=== PATIENT | female | born 1975 | race Caucasian/White ===

== ENCOUNTER → 2020-06-03 09:12 | Outpatient (BNVA) | payer OTHER, SELFPAY | PROVIDERS: PCP Family Medicine; Visit Provider Physician Assistant ==

== ENCOUNTER → 2020-06-08 08:12 | Outpatient (BNVA) | payer OTHER, SELFPAY | PROVIDERS: PCP Family Medicine; Visit Provider Surgery ==

== ENCOUNTER 2020-06-09 13:05 | Outpatient (REF) | payer OTHER, SELFPAY ==
--- NOTE | ~2020-06-09 | XR_ITS ---
EXAMINATION: XR CHEST CLINICAL INFORMATION: Morbid obesity COMPARISON: None TECHNIQUE: 2 views of the chest were obtained. FINDINGS: Normal symmetric lung volumes. No parenchymal consolidation. No pleural effusion. No pneumothorax. Cardiomediastinal silhouette and pulmonary vascularity are within normal limits. No acute osseous abnormalities. XR/XR chest 2V IMPRESSION: Unremarkable examination.
--- NOTE | 2020-06-09 13:31 | ECG_ITS ---
Test Reason : MORBID OBESITY Blood Pressure : / mmHG Vent. Rate : 077 BPM Atrial Rate : 077 BPM P-R Int : 158 ms QRS Dur : 090 ms QT Int : 366 ms P-R-T Axes : 033 015 002 degrees QTc Int : 414 ms Normal sinus rhythm Low voltage QRS Borderline ECG No previous ECGs available Referred By: Guillermo Boyle Electronically Signed By:ALECIA HERRERA MD
[2020-06-09 14:22] LABS: MANUAL DIFF FLAG NO
[2020-06-09 14:28] LABS: Basophils Percent Auto 0.5 % (0-2); Eosinophils Absolute Auto 0.2 X10*3/uL (0.0-0.4); Eosinophils Percent Auto 2.1 % (0-4); Hematocrit 30.7 % (37-47); Hemoglobin 9.3 g/dl (12.0-16.0); Imm Gran Abs Auto 0.03 X10*3/uL (0.00-0.03); Imm Gran Pct Auto 0.4 % (0.0-0.4); Lymphocytes Absolute Auto 2.1 X10*3/uL (1.2-4.9); Lymphocytes Percent Auto 27.8 % (20-40); Mean Corpuscular HGB Conc 30.3 g/dl (31.0-35.0); Mean Corpuscular Hemoglobin 20.4 pg (27.0-33.0); Mean Corpuscular Volume 67.2 fL (80-98); Mean Platelet Volume 10.9 fL (9.4-12.3); Monocytes Absolute Auto 0.4 X10*3/uL (0.1-1.2); Monocytes Percent Auto 5.4 % (2-11); Neutrophils Absolute Auto 4.8 X10*3/uL (2.0-8.3); Neutrophils Percent Auto 63.8 % (45-73); Platelet Count 345 X10*3/uL (160-400); Red Blood Count 4.57 X10*6/uL (4.20-5.50); Red Cell Distribution Width 15.3 % (11.0-16.0); White Blood Count 7.5 X10*3/uL (4.8-10.8)
[2020-06-09 14:49] LABS: Alanine Aminotransferase 17 U/L (0-31); Albumin Level 3.7 g/dL (3.5-5.0); Alkaline Phosphatase 86 U/L (39-117); Anion Gap 13 (12-20); Aspartate Amino Transferase 19 U/L (5-31); Bilirubin Total 0.4 mg/dL (0.0-1.0); Blood Urea Nitrogen 9 mg/dL (9-16); C Reactive Protein 2.55 mg/dL (< or = 0.50); Calcium 8.7 mg/dL (8.4-10.2); Carbon Dioxide 25 mmol/L (22-29); Chloride 104 mmol/L (96-108); Cholesterol 188 mg/dL; Estimated Glomerular Filt Rate > 60; Glucose Random 90 mg/dL (60-115); HDL Cholesterol 61 mg/dL; LDL Cholesterol Calculated 91 mg/dl; Potassium 4.4 mmol/L (3.3-5.1); Sodium 138 mmol/L (135-145); Total Protein 6.8 g/dL (6.5-8.0); Triglycerides 182 mg/dL
[2020-06-09 15:10] LABS: Ferritin 5 ng/mL (10-250); TSH reflex Free T4 0.72 uIU/mL (0.32-4.0); Vitamin D 25-OH Total 22.9 ng/mL (>30)
[2020-06-09 15:25] LABS: Folate 9.2 ng/mL (> or = 4.0); Vitamin B12 206 pg/mL (200-900)
[2020-06-09 15:27] LABS: Estimated Average Glucose 146 mg/dL; Hemoglobin A1c % 6.7 %
[2020-06-10 18:21] LABS: PTHI 47 pg/mL (14-64)
[2020-06-12 17:07] LABS: Zinc 76 mcg/dL (60-130)
[2020-06-13 06:27] LABS: Vitamin B1 9 nmol/L (8-30)
[2020-06-13 12:21] LABS: Vitamin A 62 mcg/dL (38-98)
== END 2020-06-09 13:06 | disposition home or self-care (01) ==
LOC: HO.LAB 13:05
PROVIDERS: Surgery; PCP Family Medicine; Visit Provider Surgery
DX: E66.01 Morbid (severe) obesity due to excess calories (principal); E11.9 Type 2 diabetes mellitus without complications; G47.30 Sleep apnea, unspecified; J45.909 Unspecified asthma, uncomplicated
CPT/HCPCS: 36415; 71046; 80053; 80061; 82306; 82607; 82728; 82746; 83036; 83525; 83970; 84425; 84443; 84590; 84630; 85025; 86140; 93005

== ENCOUNTER → 2020-07-04 08:24 | Outpatient (BNVA) | payer OTHER, SELFPAY | PROVIDERS: PCP Family Medicine; Visit Provider Surgery | DX: E66.01 Morbid (severe) obesity due to excess calories (principal); Z68.41 Body mass index [BMI] 40.0-44.9, adult; Z71.3 Dietary counseling and surveillance | CPT/HCPCS: 97802 ==

== ENCOUNTER 2020-07-14 09:40 | Outpatient (REF) | payer OTHER, SELFPAY ==
--- NOTE | ~2020-07-14 | US_ITS ---
EXAMINATION: US COMPLETE ABDOMEN WITH LIVER ELASTOGRAPHY CLINICAL INFORMATION: Morbid (severe) obesity. COMPARISON: None. TECHNIQUE: Real-time imaging of the abdominal viscera. Noninvasive ultrasound liver fibrosis assessment is performed using Lonnie ElastPQ point quantification shear wave elastography (pSWE) with a C5-2 MHz transducer. Multiple elastography samples are obtained. FINDINGS: PANCREAS: Normal. The visualized pancreatic head and body are normal in appearance. The remainder of the pancreas is obscured from visualization by the overlying bowel gas. ABDOMINAL AORTA: The proximal, middle, and distal aortic segments are normal in caliber. INFERIOR VENA CAVA: Visualized portions are normal. LIVER: The liver demonstrates normal size, contour and increased echogenicity. No focal lesion or intrahepatic biliary duct dilatation. The right lobe measures 17.0 cm in length. The left lobe measures 1.15 cm in length. Portal flow is hepatopedal. Shear wave liver elastography median stiffness is 1.57 m/s (reference: normal median stiffness is 1.3 m/s or less). IQR/median stiffness to assess sampling precision is 0.25 (reference: good quality data set is IQR/median stiffness of 0.15 or less). GALLBLADDER: Normal. The gallbladder is physiologically distended without evidence of stones, sludge, polyps, wall thickening or pericholecystic fluid. COMMON BILE DUCT: Normal in caliber measuring 0.27 cm in diameter. RIGHT KIDNEY: Normal. No hydronephrosis. No renal calculi or focal parenchymal lesions. The kidney measures 10.9 cm in maximum dimension. LEFT KIDNEY: Normal. No hydronephrosis. No renal calculi or focal parenchymal lesions. The kidney measures 10.8 cm in maximum dimension. SPLEEN: Normal. The spleen measures 10.7 cm in maximum dimension. FREE FLUID: None. US/US abdomen comp w elastography IMPRESSION: 1. Hepatic steatosis without focal lesion. Rest of the abdominal ultrasound is unremarkable 2. Liver elastography: Median stiffness 1.57. This is suggestive of cACLD ruled out. REFERENCE: Society of Radiologists in Ultrasound Liver Stiffness Thresholds (2020): LIVER STIFFNESS THRESHOLDS: *Liver Stiffness equal or less than 1.3 m/s: High probability of being normal. *Liver Stiffness less than 1.7 m/s: In the absence of other known clinical signs, rules out compensated advanced chronic liver disease. *Liver Stiffness 1.7-2.1 m/s: Suggestive of compensated advanced chronic liver disease, but need further test for confirmation. *Liver Stiffness over 2.1 m/s: Rules in compensated advanced chronic liver disease. *Liver Stiffness over 2.4 m/s: Suggestive of clinically significant portal hypertension. QUALITY OF DATA SET: *IQR/Median value equal or less than 0.15 implies a quality data set. *IQR/Median value over 0.15 implies a poor quality data set. SIGNIFICANT CHANGE FROM PRIOR EXAM: Significant change if liver stiffness measurement is 10% or greater from prior exam. OTHER CONSIDERATIONS: The stage of liver fibrosis may be overestimated in the setting of acute hepatitis, liver inflammation, elevated liver function tests, hepatic vascular congestion, obstructive cholestasis, non-fasting state, and infiltrative diseases such as amyloidosis and lymphoma. In some patients with NAFLD, the liver stiffness thresholds for compensated advanced chronic liver disease may be lower. In causes other than viral hepatitis and NAFLD, liver stiffness thresholds are not well established.
--- NOTE | ~2020-07-14 | FL_ITS ---
EXAMINATION: XR UPPER GI SERIES CLINICAL INFORMATION: Haanooti-mx-[id number] obesity due to excess calories. COMPARISON: None TECHNIQUE: Routine upper GI air-contrast study was performed upright and lying position. FINDINGS: Following oral administration of thick barium and effervescent granules, there is normal propagation of bolus from the oral cavity through the pharynx, esophagus into stomach without any evidence of obstruction, narrowing or stricture. On placing patient supine and prone, the course, caliber and peristalsis of the stomach, duodenal bulb and the sweep are normal. There is mild reflux in distal esophagus. There is no evidence of hiatal hernia. FLUOROSCOPY TIME: 1.5 minutes DOSE AREA PRODUCT: 45.605 uGy-m2 (microgray-meter squared) FL/FL upper GI series IMPRESSION: Mild gastroesophageal reflux. Otherwise unremarkable upper GI contrast study.
== END 2020-07-14 09:41 | disposition home or self-care (01) ==
LOC: HO.US 09:40
PROVIDERS: PCP Family Medicine; Visit Provider Surgery
DX: Z01.818 Encounter for other preprocedural examination (principal); E66.01 Morbid (severe) obesity due to excess calories; K21.9 Gastro-esophageal reflux disease without esophagitis; G47.30 Sleep apnea, unspecified; J45.909 Unspecified asthma, uncomplicated
CPT/HCPCS: 74240; 76705; 76981

== ENCOUNTER → 2020-07-28 08:14 | Outpatient (BNVA) | payer OTHER, SELFPAY | PROVIDERS: PCP Family Medicine; Visit Provider Surgery ==

== ENCOUNTER 2020-08-04 08:36 | Outpatient (REF) | payer OTHER, SELFPAY ==
[2020-08-05 13:37] LABS: H Pylori Breath Test NOT DETECTED (NOT DETECTED)
== END 2020-08-04 08:37 | disposition home or self-care (01) ==
LOC: HO.LNP 08:36
PROVIDERS: PCP Family Medicine; Visit Provider Surgery
DX: E66.01 Morbid (severe) obesity due to excess calories (principal); G47.30 Sleep apnea, unspecified; J45.909 Unspecified asthma, uncomplicated
CPT/HCPCS: 83013

== ENCOUNTER → 2020-09-28 08:22 | Outpatient (BNVA) | payer OTHER, SELFPAY | PROVIDERS: PCP Family Medicine; Visit Provider Physician Assistant ==

== ENCOUNTER → 2022-09-04 13:40 | Outpatient (BNVA) | payer OTHER, SELFPAY | PROVIDERS: PCP Family Medicine; Visit Provider Physician Assistant Surgical ==

== ENCOUNTER 2022-11-07 10:11 | Outpatient (AMB) | payer OTHER, SELFPAY ==
--- NOTE | 2022-11-07 10:43 | A.OFFVIS_ITS ---
Intake VS Expanded 11/07/22 10:47 Height 5 ft 2.5 in Weight 247 lb 12.8 oz BMI 44.6 BP 174/79 H Blood Pressure Location Rt brachial Blood Pressure Position Sitting Pulse 89 Pulse Source Pulse Oximeter Temp 97.6 F Temperature Source Temporal Artery Scan Pulse Oximetry 97 Oxygen Delivery Method Room Air Body Fat 119.4 Body Fat Percentage 48.2 Free Fat Mass 128.4 Muscle Mass 122.0 Visceral Mass 15.0 Water Mass 91.8 BMR 1,828 Intake Visit Reasons: (OV) Re-Est SWL Viscosity Tester Required: No Allergies lactose [LACTOSE] Allergy (Unknown, Verified 09/04/22 14:10) GI UPSET Medication List - Last Reconciled 11/07/22 by DIANE Pearce albuterol sulfate 90 mcg/actuation 0 mcg inhalation dulaglutide (Trulicity) 0.75 mg subcut QWEEK dulaglutide (Trulicity) 0.75 mg subcut QWEEK escitalopram oxalate 10 mg PO DAILY hydrochlorothiazide 12.5 mg PO DAILY ibuprofen 800 mg PO Q6H PRN medroxyprogesterone 150 mg IM [id number] oxycodone 10 mg PO TID PRN HPI HPI Comments History of Present Illness Details Pt is here to start the [facility] [place] loss [facility]. She was previously in the program in 2020 and 2021 but left to have a baby. Her goal is to lose weight and achieve a healthy lifestyle as well as to improve, if not resolve, obesity related medical conditions, including DM. She reports first being concerned about her weight late 20s, highest weight to date was 280. Current weight is 247.8 pounds with a BMI of 44.6. She has tried multiple methods of weight loss including fad diets and previous SWL program without permanent results. She lives with her . 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 She wakes at:?6 am, and goes to bed at?11 pm. Dinner is at 7 pm. Breakfast: RTD Premier protein or egg white fritata AM snack: almonds, cranberries Lunch: another shake or salad PM snack: almonds or cranberries Dinner: chicken w vegs, pasta, pork After dinner: skip Other snacks: popsicle or frozen yogurt Liquids: 60 oz water, no soda, sometimes apple juice Alcohol/marijuana/tobacco intake: 1 x per week 2 drinks, no cannabis or tobacco Exercise: home treadmill, 30 minutes speed 7, incline 12, 600 calories. [facility] Medical History Anxiety Asthma Back pain Depression Diverticulitis Knee pain Morbid obesity Non-insulin dependent diabetes mellitus PCOS (polycystic ovarian syndrome) Sleep apnea Surgical History Hx of section Hx of colonoscopy with polypectomy Family History Father Heart attack Mother Breast cancer Hypertension Pre-diabetes Brother No problems noted. Social History Alcohol intake: current Alcohol intake frequency: holidays/special occasions only Patient Tobacco Use Status: Never used Tobacco Review of Systems Const All systems reviewed & are unremarkable except as noted in HPI and below Physical Exam Vital Signs: Last Vital Signs Temp 97.6 F 11/07/22 10:47 Pulse 89 11/07/22 10:47 BP 174/79 H 11/07/22 10:47 Pulse Ox 97 11/07/22 10:47 Oxygen Delivery Method Room Air 11/07/22 10:47 BMI result Body Mass Index 44.6 Assessment & Plan Assessment & Plan (1) Morbid obesity: Code(s): E66.01 - Morbid (severe) obesity due to excess calories Plan: This is a?47 yo female who will start our SWL program to prepare for bariatric surgery.? Blood work, h pylori , CXR, ECG, Abd US and UGI have been ordered. She is being scheduled for RD and BH initial consultations. She will start SWL classes and watch the first three videos before her next appointment. ? Adequate sleep of 7-8 hours per night discussed, awakening at 6 am and going to bed around 11 pm with a goal of possibly going to bed around 10 pm ? You already have a body composition scale so just put in some fresh batteries and be sure to check weight weekly. The best time to do this is first thing in the morning after going to the bathroom. 1. Nutritional counseling: Be sure to careful read the number of scoops per shake Start with 3 Premier Protein shakes ([employer], [employer], [employer]), (1 scoop in 8 oz low fat unsweetened oat milk or water each) First shake at 7am-9am, Second shake at 11am-1pm 1 protein bar (Zone Perfect bars at [employer], [employer], or [employer]) at 3pm-5pm. Dinner at 7pm (8 forks of protein and 8 forks of salad/vegetables). Meal to include lean meat (beef, fish, pork, turkey, chicken), cooked vegetables or a salad with olive oil and/or fruits (berries, pears, apples, kiwi). Avoid salt, breads, potatoes, rice, pasta, desserts. Another shake with 1 scoop in 8 oz unsweetened oat milk at 9pm-11pm. Try to drink 64 oz of water daily and avoid soda and juices. ?2. Each shake would be drunk slowly, like coffee in a period of 2 hours. ?3. Cut each bar in 4 pieces and eat each piece in 30 min ?to make each bar last 2 hours. ?4. I emphasized the importance of measuring accurately the food portion and measure it carefully when serving the food on the plate ?5. The meal portions include 8 full-size forks of meat and 8 full-size forks of salad. You always eat the meat portion but you can replace up to half of the forks of salad/vegetables with rice, potatoes or pasta, or a fruit ?if you like. The less you do it the better weight loss will be. ?6. One full-size fork is what can be scooped on the fork without falling aside and not what can be bit with the fork. Use regular forks like those you find in a typical restaurant. ?7.? Please send me weight measurements as soon as possible and then once a week. Always include your diet and exercise plan. Alternatively come weekly at the office for weight checks and send me the measurements. ?8. Exercise counseling: Begin by watching a stretching for beginners video. Start slowly and begin to stretch your muscles. You should do this before and after each exercise session to prevent injury. Start treadmill with a speed of 3.4 and incline of 2, increasing incline by 2 every 3 minutes to the highest comfortable level (max 12 for now) then decrease in the same fashion. Repeat process to a goal of 300 calories or more. Goal of 2000 calories burned or more weekly. You may also consider use of the stationary bike. The easiest would be to chose the fat-burn or interval training program on the machine and do this until you reach the 300 calorie goal. Alternatively, you can manually adjust the resistance in a similar fashion as mentioned above, (resistance of 2-8 with a goal speed of 12 mph). Tracking calories is essential. 9. Alternatively start walking outside daily, tracking calories with a goal of 300 calories per day, daily. You can download the ham [employer] which can track your time, distance and calories while walking outside. You press start in the ham when you start and then stop when you are finished. 10.? It is important to avoid for at least 18 months postoperatively and it has been discussed at the information session 11. Please get labs, EKG and chest X-Ray within 1 week. 12. Discussed and answered all questions regarding?obtained consent to participate in the [place] [facility]?Registry. 13. Please follow the diet plan exactly, without any change. If you do not like something about the plan or you feel hungry, you need to communicate with me so I can help you revise the plan. You should not change the plan yourself. Text me at [phone] 14. Goal is to lose at least 12 pounds in the first month 15. Goal is to lose 10% of your weight before surgery, which is about 24 lbs. Ultimate weight goal: 223 lbs before surgery Patient is morbidly obese and is not considered stable at this time.?I spent a total of 70 minutes reviewing/updating records, examining the patient and counseling the patient on weight management as detailed above. Orders: Orders Vitamin B12 and Folate Today E28.2 - Polycystic ovarian syndrome, E53.8 - Deficiency of other specified B group vitamins, E55.9 - Vitamin D deficiency, unspecified, E66.01 - Morbid (severe) obesity due to excess calories Comprehensive Met. Panel Today E28.2 - Polycystic ovarian syndrome, E53.8 - Deficiency of other specified B group vitamins, E55.9 - Vitamin D deficiency, unspecified, E66.01 - Morbid (severe) obesity due to excess calories C Reactive Protein Today E28.2 - Polycystic ovarian syndrome, E53.8 - Deficiency of other specified B group vitamins, E55.9 - Vitamin D deficiency, unspecified, E66.01 - Morbid (severe) obesity due to excess calories Ferritin Today E28.2 - Polycystic ovarian syndrome, E53.8 - Deficiency of other specified B group vitamins, E55.9 - Vitamin D deficiency, unspecified, E66.01 - Morbid (severe) obesity due to excess calories Hemoglobin A1c Today E28.2 - Polycystic ovarian syndrome, E53.8 - Deficiency of other specified B group vitamins, E55.9 - Vitamin D deficiency, unspecified, E66.01 - Morbid (severe) obesity due to excess calories Insulin Today E28.2 - Polycystic ovarian syndrome, E53.8 - Deficiency of other specified B group vitamins, E55.9 - Vitamin D deficiency, unspecified, E66.01 - Morbid (severe) obesity due to excess calories IRON PROFILE Today E28.2 - Polycystic ovarian syndrome, E53.8 - Deficiency of other specified B group vitamins, E55.9 - Vitamin D deficiency, unspecified, E66.01 - Morbid (severe) obesity due to excess calories Lipid Panel Today E28.2 - Polycystic ovarian syndrome, E53.8 - Deficiency of other specified B group vitamins, E55.9 - Vitamin D deficiency, unspecified, E66.01 - Morbid (severe) obesity due to excess calories PTHI Today E28.2 - Polycystic ovarian syndrome, E53.8 - Deficiency of other specified B group vitamins, E55.9 - Vitamin D deficiency, unspecified, E66.01 - Morbid (severe) obesity due to excess calories TSH reflex Free T4 Today E28.2 - Polycystic ovarian syndrome, E53.8 - Deficiency of other specified B group vitamins, E55.9 - Vitamin D deficiency, unspecified, E66.01 - Morbid (severe) obesity due to excess calories Vitamin A Today E28.2 - Polycystic ovarian syndrome, E53.8 - Deficiency of other specified B group vitamins, E55.9 - Vitamin D deficiency, unspecified, E66.01 - Morbid (severe) obesity due to excess calories Vitamin B1 Today E28.2 - Polycystic ovarian syndrome, E53.8 - Deficiency of other specified B group vitamins, E55.9 - Vitamin D deficiency, unspecified, E66.01 - Morbid (severe) obesity due to excess calories Vitamin D 25-OH Total Today E28.2 - Polycystic ovarian syndrome, E53.8 - Deficiency of other specified B group vitamins, E55.9 - Vitamin D deficiency, unspecified, E66.01 - Morbid (severe) obesity due to excess calories Zinc Today E28.2 - Polycystic ovarian syndrome, E53.8 - Deficiency of other specified B group vitamins, E55.9 - Vitamin D deficiency, unspecified, E66.01 - Morbid (severe) obesity due to excess calories ECG 12 lead EKG Today E28.2 - Polycystic ovarian syndrome, E53.8 - Deficiency of other specified B group vitamins, E55.9 - Vitamin D deficiency, unspecified, E66.01 - Morbid (severe) obesity due to excess calories FL upper GI w air Today E28.2 - Polycystic ovarian syndrome, E53.8 - Deficiency of other specified B group vitamins, E55.9 - Vitamin D deficiency, unspecified, E66.01 - Morbid (severe) obesity due to excess calories Complete Blood Count Auto Diff Today E28.2 - Polycystic ovarian syndrome, E53.8 - Deficiency of other specified B group vitamins, E55.9 - Vitamin D deficiency, unspecified, E66.01 - Morbid (severe) obesity due to excess calories H Pylori Breath Test Today E28.2 - Polycystic ovarian syndrome, E53.8 - Deficiency of other specified B group vitamins, E55.9 - Vitamin D deficiency, unspecified, E66.01 - Morbid (severe) obesity due to excess calories US abdomen comp w elastography Today E28.2 - Polycystic ovarian syndrome, E53.8 - Deficiency of other specified B group vitamins, E55.9 - Vitamin D deficiency, unspecified, E66.01 - Morbid (severe) obesity due to excess calories XR chest 2V Today E28.2 - Polycystic ovarian syndrome, E53.8 - Deficiency of other specified B group vitamins, E55.9 - Vitamin D deficiency, unspecified, E66.01 - Morbid (severe) obesity due to excess calories Referrals Behavioral Health Referral E28.2 - Polycystic ovarian syndrome, E53.8 - Deficiency of other specified B group vitamins, E55.9 - Vitamin D deficiency, unspecified, E66.01 - Morbid (severe) obesity due to excess calories Nutrition/Dietitian Referral E28.2 - Polycystic ovarian syndrome, E53.8 - Deficiency of other specified B group vitamins, E55.9 - Vitamin D deficiency, unspecified, E66.01 - Morbid (severe) obesity due to excess calories Coding Level of Care Code Est Pt Level 5 (12773) Diagnoses Morbid obesity E66.01 Time Spent (min) 70
[2022-11-07 10:47] VITALS: BP 174/79; PULSE 89; TEMP 36.4; O2SAT 97; BMI 44.6
== END 2022-11-07 13:41 | disposition home or self-care (01) ==
LOC: HO.HBS 10:11
PROVIDERS: PCP Family Medicine; Visit Provider Physician Assistant Surgical
DX: E66.01 Morbid (severe) obesity due to excess calories (principal); Z68.41 Body mass index [BMI] 40.0-44.9, adult
CPT/HCPCS: 99215

== ENCOUNTER → 2022-11-07 10:11 | Outpatient (BNVA) | payer OTHER, SELFPAY | PROVIDERS: PCP Family Medicine; Visit Provider Physician Assistant Surgical ==

== ENCOUNTER 2022-11-16 10:18 | Outpatient (AMB) | payer OTHER, SELFPAY ==
--- NOTE | 2022-11-16 10:08 | MHC.AMNUTRGE ---
Intake Intake Visit Reasons: VIDEO Initial Nutrition SW Filing And Polishing Supervisor Required: No Allergies lactose [LACTOSE] Allergy (Unknown, Verified 09/04/22 14:10) GI UPSET HPI Nutrition Presentation Details I met with pt in 2020 for initial nutrition assessment, was cleared. . Her main reason in 2020 for trying to have bariatric surgery was for fertility. but came a point where she had to decide between getting vs getting bariatric surgery. she left the program shortly after to pursue starting a family Reason for consult elevated BMI Diet Assmnt Details 8am Premier premade - doesn't like the powders 12pm shake cheese stick and almonds dinner: 6:30-7pm chicken and vegetables - estimates 5-6oz protein Currently with a 9 month old baby girl. During her recent , gained 22#, lost most of it. Went on Depo shot, spiked her A1c and gained a sig amount of weight. Exercise: 1 mile and 1/2 walk treadmill for 30 minutes daily SWL online classes: none Previous weight loss methods attempted Has made multiple attempts to lose weight; Had a dietitian in the past who taught her label reading - [facility] weight management .[facility] 2020 Dietary counseling reduction Diagnosis Nutrition problem #1 overweight/obesity As related to (etiology) #1 excess energy intake and physical inactivity As evidenced by (sign/symptom) #1 high BMI Monitoring/Goals Nutrition problem monitoring total energy intake, level of knowledge/skill, total PRO intake, total CHO intake, weight and oral fluids Outcome progress progressing Learning/Education Readiness to learn excellent Stages of change action Educational materials provided Yes Most Recent Diabetes Results: No Data to Display [facility] Medical History Anxiety Asthma Back pain Depression Diverticulitis Knee pain Morbid obesity Non-insulin dependent diabetes mellitus PCOS (polycystic ovarian syndrome) Sleep apnea Surgical History Hx of section Hx of colonoscopy with polypectomy Family History Father Heart attack Mother Breast cancer Hypertension Pre-diabetes Brother No problems noted. Social History Alcohol intake: current Alcohol intake frequency: holidays/special occasions only Patient Tobacco Use Status: Never used Tobacco Assessment & Plan Assessment & Plan (1) Morbid obesity: Code(s): E66.01 - Morbid (severe) obesity due to excess calories (2) Non-insulin dependent diabetes mellitus: Patient Instructions: can continue premade shakes, but aim for 3 per day to ensure she is getting enough protein. or 2 shakes and 1 bar. Continue exercise and increase as tolerated.. Sent patient online class information. Complete classes and follow-up with me 12/25 at 11am - may follow up sooner if desired Telehealth Telehealth Location of provider rendering services: practice address Location of patient: address on file Patient Identification confirmed using: Name, : Yes Telehealth method: video Patient verbally consented to treatment: Yes Patient verbally consented to billing insurance company: Yes Patient informed of any privacy concerns related to visit: Yes Minutes spent on Phone/Video with Pt.: 30 Coding Level of Care Code Nutr Indiv Subseq ([id number]) Diagnoses Morbid obesity E66.01 Non-insulin dependent diabetes mellitus Time Spent (min) 30
== END 2022-11-16 10:45 | disposition home or self-care (01) ==
LOC: HO.HBS 10:18
PROVIDERS: PCP Family Medicine; Visit Provider Dietitian, Registered
DX: E66.01 Morbid (severe) obesity due to excess calories (principal)

== ENCOUNTER → 2022-11-16 10:18 | Outpatient (BNVA) | payer OTHER, SELFPAY | PROVIDERS: PCP Family Medicine; Visit Provider Dietitian, Registered | DX: E66.01 Morbid (severe) obesity due to excess calories (principal); E11.9 Type 2 diabetes mellitus without complications; Z71.3 Dietary counseling and surveillance | CPT/HCPCS: 97803 ==

== ENCOUNTER 2024-03-23 11:42 | Outpatient (REF) | payer OTHER, SELFPAY ==
--- NOTE | ~2024-03-23 | XR_ITS ---
CLINICAL HISTORY: M25.569 - Pain in unspecified knee Standing AP view of both knees Comparison: None Findings: No fractures or dislocations. On the left, there is mild lateral compartment joint space narrowing. No joint effusion. No radiopaque foreign body. IMPRESSION: 1. No acute findings. 2. Mild lateral compartment joint space narrowing on the left. This document has been electronically signed by: Ovidio Vick MD on 03/26/2024 10:43:53
--- NOTE | ~2024-03-23 | XR_ITS ---
CLINICAL HISTORY: M25.562 - Pain in left knee Two views of the left knee Indication: Pain Comparison: None. Findings: No fracture or malalignment. No joint effusion. Mild patellofemoral compartment joint space narrowing. Impression: No acute process. Mild degenerative change. This document has been electronically signed by: Ovidio Vick MD on 03/26/2024 10:44:56
== END 2024-03-23 11:43 | disposition home or self-care (01) ==
LOC: HO.HOSX 11:42
PROVIDERS: Visit Provider Orthopaedic Surgery
DX: M25.562 Pain in left knee (principal); M25.569 Pain in unspecified knee
CPT/HCPCS: 73560; 73562

== ENCOUNTER 2024-03-23 14:00 | Outpatient (AMB) | payer OTHER, SELFPAY ==
--- NOTE | 2024-03-23 14:09 | MHC.OFFVIS ---
Vital Signs 03/23/24 14:13 Height 5 ft 3 in Weight 246 lb BMI 43.6 Intake Visit Reasons: [employer]- LT knee pain Intake Note: Herlinda is a 48 year old female who presents today as a new patient with complaints of Left knee pain. Patient reports ongoing left knee pain since she was about 17. Has previously seen Dr. Brewer at [facility]. She explains that the left knee isnt as painful as the pain she feels on the lateral aspect of the upper thigh/hip. She has trouble ambulating stairs as the left knee feels weak or as if it is going to give out on her. She is Prescribed 10 mg Oxycodone TID by her pcp but she tried to avoid taking this as she does not like the way it makes her feel. Allergies lactose [LACTOSE] Allergy (Unknown, Verified 09/04/22 14:10) GI UPSET HPI HPI [employer] SALES [employer]IATE- LT knee pain: Details: This is a 48-year-old woman who comes in with a long history of left knee pain she states she injured it when she was a child and had seen a orthopedic surgeon at outside facility who thought it was not appropriate to do a knee replacement but I guess they discussed it. Now she does not have knee pain but does feel difficulty going up and down stairs and occasionally difficulty when standing from seated position. Most of her pain is in the left lateral thigh. She denies numbness and tingling. She denies groin pain. She is on a weight loss journey and trying to get fit again after gaining weight after having children. [facility] Medical History Anxiety Asthma Back pain Depression Diverticulitis Knee pain Morbid obesity Non-insulin dependent diabetes mellitus PCOS (polycystic ovarian syndrome) Sleep apnea Surgical History Hx of section Hx of colonoscopy with polypectomy Family History Father Heart attack Mother Breast cancer Hypertension Pre-diabetes Brother No problems noted. Social History Alcohol intake: current Alcohol intake frequency: holidays/special occasions only Patient Tobacco Use Status: Never used Tobacco Physical Exam Vital Signs: BMI result Body Mass Index 43.6 Extrem Other: Valgus bilateral knees with lateral tracking patella bilaterally. Retropatellar tenderness to palpation laterally with no groin pain with hip range of motion. Results Reviewed Results Reviewed: I personally reviewed relevant radiographs. Lateralization of the patella bilaterally with [id number] patellofemoral arthritis Assessment & Plan Assessment & Plan (1) Patellofemoral arthritis: Code(s): M17.10 - Unilateral primary osteoarthritis, unspecified knee Category: Medical Plan: This is a 48-year-old woman with patellofemoral arthritis in the setting of lateral patellar maltracking. She does not have much pain and there is no intervention warranted at this time. I think weight loss and strengthening would be helpful. If pain does begin I think it would be reasonable to consider injections. I discussed this with her. She can see me as needed. Orders: Orders XR knee LT 3V Today M25.562 - Pain in left knee XR knee RT 1V Today M25.569 - Pain in unspecified knee Coding Level of Care Code New Pt Level 3 (58344) Diagnoses Patellofemoral arthritis M17.10
[2024-03-23 14:13] VITALS: BMI 43.6
== END 2024-03-23 14:38 | disposition home or self-care (01) ==
PROVIDERS: PCP Family Medicine; Visit Provider Orthopaedic Surgery
DX: M17.10 Unilateral primary osteoarthritis, unspecified knee (principal)
CPT/HCPCS: 99203